=== PATIENT | female | born 1970 | race Caucasian/White ===

== ENCOUNTER 2024-05-27 06:59 | Day surgery (SDC) | payer SELFPAY, OTHER ==
--- NOTE | 2024-05-25 15:57 | PCM.HP.BLA ---
History and Physical Date of Admission: 05/27/24 Pre-Op History and Physical HPI: The patient is a 54 year old female presenting for pre-operative visit. She is scheduled for Hysteroscopy D&C, possible polypectomy for PMB, thickened EM on 05/27/24. Procedure discussed along with risks, benefits and complications. Other alternatives discussed for management. Consent form signed? Yes. PAST MEDICAL HISTORY No past medical history on file. PAST SURGICAL HISTORY PAST SURGICAL HISTORY Procedure Laterality Date ? APPENDECTOMY ? PAST SURGICAL HISTORY OF tumor removal CURRENT MEDICATIONS Current Outpatient Medications Medication Sig Dispense Refill ? norethindrone (AYGESTIN) 5 mg tablet Take 1 tablet by mouth once daily. 30 tablet 2 No current facility-administered medications for this visit. ALLERGIES: Penicillins PERSONAL HISTORY: SOCIAL HISTORY Social History Tobacco Use ? Smoking status: Never ? Smokeless tobacco: Never Vaping Use ? Vaping status: Never Used Substance Use Topics ? Alcohol use: Never ? Drug use: Never FAMILY HISTORY: FAMILY HISTORY No family history on file. REVIEW OF SYMPTOMS: negative except as noted above PHYSICAL EXAMINATION: VITALS: There were no vitals taken for this visit. GENERAL: The patient is well nourished, well hydrated in no acute distress. , The patient is oriented to time, place, and person. NECK: full range of motion LUNGS: Clear to auscultation bilaterally. no wheezes, rhonchi or rales HEART: Regular rate and rhythm, Normal heart sounds, and No murmurs or gallops IMPRESSION: PMB, thickened Endometrium PLAN: Hysteroscopy, D&C, possible polypectomy with symphion Pt has been counseled on risks/benefits and alternatives of surgery including but not limited to anesthesia, bleeding, infection, uterine perforation with subsequent injury to pelvic structures including bowel, bladder, ureters and vessels. Pt wishes to proceed with surgery at this time. Pre and post op instructions reviewed I have reviewed and updated past medical and surgical history, medications and allergies Jeanne Lala MD Office Visit on 05/02/2024 Note shared with patient
[2024-05-27] VITALS (8 sets, daily range): BP systolic 115–129; BP diastolic 76–85; PULSE 65–74; RESP 16–17; TEMP 36.2–36.6; O2SAT 93–100; BMI 29.2
--- NOTE | 2024-05-27 | EMB_PTH ---
PATIENT: PILY CLAROS [place] [facility] [id number] AGE/SX: 54/F ROOM: RE05/27/[address]: Dr. Jeanne Acosta, MDDOB: 1970 BED: DIS: 05/27/2024 SPEC #: [id number] RECD: 05/27/24 12:48 STATUS: BELKIS NIKOLASJean-Claude #: [id number] AMANDA: 05/27/24 00:[address]: Jeanne Acosta DEPT: SURGICAL PATHOLOGY RECD BY: Wicho Carr ENTERED: 05/27/24 12:49 SP TYPE: ENDOM BX/C OTHR DR: NEVIN Savage Tissues: Endometrium, NOS Procedures: Surgery Specimen Level IV HEADER OPERATION: Hysteroscopy, D&C PRE-OP DIAGNOSIS: Postmenopausal bleeding, thickened endometrium TISSUE SUBMITTED: Endometrial curettings MICROSCOPIC DIAGNOSIS Endometrial curettings: Proliferative endometrium. Numerous fragments of myometrium. SJ.mr 05/30/2024 MICROSCOPIC DESCRIPTION Slides are reviewed. GROSS DESCRIPTION Received in fixative is one container labeled with the patient's name and designated Endometrial curettings. The specimen consists of multiple irregular fragments of cortes soft tissue that in aggregate measure 3.0 x 2.5 x 0.3 cm. The specimen is totally submitted in one cassette. . 05/27/2024 TC:4 CPT:69490
--- NOTE | 2024-05-27 07:20 | DCINST_ITS ---
Discharge Instructions Diet Discharge Diet: No restrictions Activity May resume sexual activity in: 1 week Dressing / Incision Call your doctor if you observe: Fever of 101 or Higher, Inability to urinate, Using more than 1 pad per hour and Uncontrolled pain Follow Up Care Please Follow Up With: Jeanne Acosta MD When: 1-2 weeks post OP if you need an appointment please call [phone] Test Results: Test results from this visit will be discussed in further detail at your follow- up appointment, if applicable. Discharge Plan Admission Attending Provider: Jeanne Acosta Primary Care Provider: No Chan Instructions Print Language: [place]ese Discharge Orders/Prescriptions Referrals / Follow Up: No Chan PA [Primary Care Provider] - Disposition Disposition (needs filled in before D/C Order can be placed): Home, Self Care
[2024-05-27 07:29] LABS: Hematocrit 45.4 % (37-47); Hemoglobin 14.7 g/dL (12.0-15.0); Mean Corp Hgb Conc 32.4 g/dL (32-36); Mean Corpuscular Hgb 27.7 pg (27.0-32.0); Mean Corpuscular Volume 85.7 fL (81-99); Mean Platelet Vol. 10.2 fl (6.2-12.0); Platelet Count 316 K/mm3 (150-450); RBC Distribution Width CV 14.1 % (11.6-14.6); RBC Distribution Width SD 43.8 fl (35.1-43.9); White Blood Count 6.5 K/mm3 (4.4-11.0)
--- NOTE | 2024-05-27 07:37 | PCM.PRE.AN2 ---
ASA Classification* ASA Classification ASA Classification: 2 (SEE WRITTEN PRE ANESTHESIA RECORD FOR FULL ASSESSMENT) Assessment & Plan Anesthesia* Anesthesia Assessment Anesthesia Assessment: Discussed sedation and/or anesthesia options, risks, benefits, and alternatives with patient/parents/legal guardian/POA. Questions invited. The patient/parents/legal guardian/POA seems to understand and agrees to proceed with anesthesia plan. Reviewed the physical assessment, medical history, allergy history and patient home medications list prior to surgery/procedure/anesthetic and documented any changes. Performed airway and anesthesia risk assessments. Anesthesia Type Anesthesia Type: MAC (SEE WRITTEN PRE ANESTHESIA RECORD FOR FULL ASSESSMENT) Anesthesia Focused Assessment* Temperature: 97.4 F Pulse Rate: 72 Blood Pressure: 129/85 Respiratory Rate: 17 Pulse Ox: 100 Airway Assessment Mouth opens: >3 cm Mallampati Score: II Focused Labs Anesthesia Preop lab: CBC WBC 6.5 K/mm3 (4.4-11.0) 05/27/24 07:23 RBC 5.30 M/mm3 (4.2-5.4) 05/27/24 07:23 Hgb 14.7 g/dL (12.0-15.0) 05/27/24 07:23 Hct 45.4 % (37-47) 05/27/24 07:23 Plt Count 316 K/mm3 (150-450) 05/27/24 07:23 CHEMISTRY Potassium Pending 05/27/24 07:23 Sodium Pending 05/27/24 07:23 BUN Pending 05/27/24 07:23 Creatinine Pending 05/27/24 07:23 Glucose Pending 05/27/24 07:23 COAG Pre-Assessment Diagnosis/Proposed Procedure Planned Operative Procedure(s): HYSTEROSCOPY D&C POSS POLYPECTOMY Anesthesia History Anesthesia History - telephone interviewer: Anesthesia History - telephone interviewer Hx Hospitalization No 05/20/24 08:54 Any Problems With Anesthesia No 05/20/24 08:54 Cholinesterase deficiency No 05/20/24 08:54 You/Your Family Experience No 05/20/24 08:54 fever (hyperthermia) with Relationship Recent Exposure to Contagious No 05/27/24 07:26 Disease Does patient have nerve No 05/20/24 08:54 stimulator Patient instructed to have device shut off --Does patient have Pacemaker No 05/27/24 07:26 or ICD? When Was Last Pacemaker Check QUESTION #4 FULL TEXT: You/Your Family Experience fever (hyperthermia) with Anesthesia Last Oral Intake Last Oral intake: Last Oral Intake NPO since 00:00 05/27/24 07:26 Meds taken in AM with sips of No 05/27/24 07:26 water? Meds patient instructed to take am of surgery PONV PONV - telephone interviewer: PONV - telephone interviewer Female Yes 05/20/24 08:54 HX of Motion Sickness No 05/20/24 08:54 HX of N/V After Surgery No 05/20/24 08:54 Non-Smoker Yes 05/20/24 08:54 Duration of Surgery greater No 05/20/24 08:54 than 60 minutes Number of Risk Factors 2 05/20/24 08:54 PONV Score Moderate Risk 05/20/24 08:54 Height & Weight Height & Weight: Anesthesia: Height & Weight Height 5 ft 6 in 05/27/24 07:26 Weight: 82 kg 05/27/24 07:26 Body Mass Index (BMI) 29.2 05/27/24 07:26 Respiratory Assessment Respiratory Assessment - telephone interviewer: Respiratory Tract Infection Hx - telephone interviewer Hx Respiratory Tract Infection Yes: HEAD CONGESTION 05/20/24 08:54 STOP Sleep Apnea STOP Sleep Apnea - telephone interviewer: STOP Sleep Apnea - telephone interviewer Hx Hypertension No 05/20/24 08:54 Hx Sleep Apnea No 05/20/24 08:54 CPAP BIPAP Do you snore loudly (louder No 05/20/24 08:54 than talking or can be heard Do you often feel tired/ No 05/20/24 08:54 fatigued/ sleepy during daytime? Has anyone observed you stop No 05/20/24 08:54 breathing during sleep? STOP Results Negative 05/20/24 08:54 QUESTION #5 FULL TEXT : Do you snore loudly (louder than talking or can be heard through closed doors)? Tobacco Use History Tobacco Use History - telephone interviewer: Tobacco Use History - telephone interviewer Tobacco Use Smoking Status Never smoker 05/20/24 08:54 Hx Tobacco Use No 05/20/24 08:54 Years Smoking Packs Smoked per Day Smoking Cessation Date was within the last 15 years Hx Smoking Cessation Date Hx Smoking Cessation Counseling Hematologic Medial History Hematologic Hx - telephone interviewer: Hematologic Medical Hx - lot associate Hx of Blood Transfusion No 05/20/24 08:54 Hx of Transfusion in last 3 No 05/20/24 08:54 Months Date of Last Transfusion (if within last 3 months) Ever experience any problems No 05/20/24 08:54 with transfusion(s)? Specify any problems Hx of Preganancy in last 3 No 05/20/24 08:54 Months Nurse Filling Out Transfusion DSCHRIBER 05/20/24 08:54 & Questions: Date: 05/20/24 05/20/24 08:54 Time: 08:55 05/20/24 08:54 Patient unable to answer at this time (ie. confused, unrespo /Reproduction History /Reproductive History - telephone interviewer: /Reproductive Hx- telephone interviewer Hx Now No 05/20/24 08:54 Gestational Age (in weeks): EDC: Hx Hx Para Hx Section SAB No 05/20/24 08:54 PFSH Medical History Post-menopausal Wears hearing aid Wears glasses Wears dentures Non-smoker Allergy/AdvReac Type Severity Reaction Status Date / Time Penicillins Allergy Intermediate Hives Verified 05/27/24 07:25 Surgical History Hx of surgical procedure Hx of abdominal surgery Social History Smoking Status: Never smoker Review of Systems (Anesthesia) ROS Narrative System reviewed and no additional complaints, except as documented.
[2024-05-27 07:40] LABS: Anion Gap 6 (5-15); BUN 13 mg/dL (7-18); BUN/Creat Ratio 15.5 RATIO (10-20); Chloride 107 mmol/L (98-107); Creatinine, Serum 0.84 mg/dL (0.55-1.02); EST Glomerular Filtration Rate 75 mL/min (>60); Est Glom Filt Rate - Afr Amer 91 mL/min (>60); Estimated Creatinine Clearance 83.61 ml/min; Glucose 124 mg/dL (74-106); Sodium Level 140 mmol/L (136-145)
--- NOTE | 2024-05-27 08:37 | PCM.OPRPT ---
Operative Report (Standard) Operative Information Surgery/Procedure Performed: hysteroscopy, D&C with symphion Surgeon: Jeanne Acosta Date of Procedure: 05/27/24 Procedure Start Time: 08:28 Procedure Stop Time: 08:35 Pre-Operative Diagnosis: PMB, thickened endometrium Post-Operative Diagnosis: same Select all DRAINS/GRAFTS/IMPLANTS that apply: None Type of Anesthesia: MAC Estimated Blood Loss: <5cc Specimen collected: Yes Description of specimen(s) removed: endometrial curettings Description of surgery: Informed consent was obtained the patient was taken the operating room she was placed in supine position. She was given anesthesia. She was then placed in the [facility] where she was prepped and draped in the normal sterile fashion. bladder drained prior to start of procedure. At this time the weighted speculum was placed in the posterior fornix of vagina. Single-tooth tenaculum was used to gently grasp the anterior lip the cervix. At this time the uterine cavity was sounded to approximately 8 cm. Gentle dilatation was performed once adequate dilatation of the cervix was achieved the hysteroscope using normal saline as a distention medium was placed. Tubal ostia visualized. tissue appered slighlty thick on anterior aspect, possible polyp but not well defined. Symphion resecting device used to obtain endometrial curettings.. Tissue will be sent to pathology for evaluation. Tenaculum removed. Good hemostasis. Instrument, lap count correct x 2. fluid deficiet 200cc Vaginal Sweep was negative. Jay Jay Mares MS3 scrubbed for case Surgical Findings: thickened tissue anterior aspect. Inspector Bullet Slugs screw supervisor: No Complications Complications: No Admit VTE Documentation VTE Present on Admission: Yes VTE Mechan Device Prophylaxis: SCD's VTE Pharm Prophylaxis ordered?: No Reason prophylaxis not ordered: Treatment Not Indicated
--- NOTE | 2024-05-27 08:56 | PCM.POST.ANE ---
Anesthesia: Postop Eval I Current Vital Signs Temperature: 97.9 F Pulse Rate: 74 Blood Pressure: 115/82 Respiratory Rate: 16 Pulse Ox: 95 Oxygen Delivery Method: Room Air Assessment Airway patent: Yes Spontaneous unlabored respirations: Yes Mental status: Awake and Calm nausea: No Vomiting: No Anesthesia Complication: No Fluid Hydration Crystalloid volume administer (ml): 0 Total IV fluid infused: 0 Progress Note Anesthesia document: Postop Eval 1 completed: Yes
--- NOTE | 2024-05-27 09:03 | POSTOPAN2_ITS ---
Anesthesia Postop Eval I Sum Postop Eval Completion status Anesthesia document: Postop Eval 1 completed: Yes Anesthesia Postop Eval I Summary Anesthesia Postop Eval I Summary: Anesthesia Postop Eval I: Assessment Summary Airway patent Yes 05/27/24 08:56 GLYCERIN SUPERVISOR.[email or web address] Spontaneous unlabored Yes 05/27/24 08:56 GLYCERIN SUPERVISOR.[email or web address] respirations Mental status Awake,Calm 05/27/24 08:56 GLYCERIN SUPERVISOR.[email or web address] nausea No 05/27/24 08:56 GLYCERIN SUPERVISOR.[email or web address] Vomiting No 05/27/24 08:56 GLYCERIN SUPERVISOR.[email or web address] Anesthesia Postop Eval I: Fluid Summary Crystalloid volume administer 0 05/27/24 08:56 GLYCERIN SUPERVISOR.[email or web address] (ml) Colloids volume administered ( ml) Blood Product volume administered (ml) Total IV fluid infused 0 05/27/24 08:56 SCOTT Anesthesia Postop Eval I: Summary Notes Anesthesia Complication No 05/27/24 08:56 SCOTT Anesthesia Complication Comment: Post-operative progress note Anesthesia: Postop Eval II Evaluation Mental status: Awake Pain Level: 0 nausea: No Vomiting: No
--- NOTE | 2024-05-27 09:03 | PCM.POSTANE2 ---
Anesthesia Postop Eval I Sum Postop Eval Completion status Anesthesia document: Postop Eval 1 completed: Yes Anesthesia Postop Eval I Summary Anesthesia Postop Eval I Summary: Anesthesia Postop Eval I: Assessment Summary Airway patent Yes 05/27/24 08:56 RACK PUSHER.[email or web address] Spontaneous unlabored Yes 05/27/24 08:56 RACK PUSHER.[email or web address] respirations Mental status Awake,Calm 05/27/24 08:56 RACK PUSHER.[email or web address] nausea No 05/27/24 08:56 RACK PUSHER.[email or web address] Vomiting No 05/27/24 08:56 RACK PUSHER.[email or web address] Anesthesia Postop Eval I: Fluid Summary Crystalloid volume administer 0 05/27/24 08:56 RACK PUSHER.EMMANUEL (ml) Colloids volume administered ( ml) Blood Product volume administered (ml) Total IV fluid infused 0 05/27/24 08:56 SCOTT Anesthesia Postop Eval I: Summary Notes Anesthesia Complication No 05/27/24 08:56 SCOTT Anesthesia Complication Comment: Post-operative progress note Anesthesia: Postop Eval II Evaluation Mental status: Awake Pain Level: 0 nausea: No Vomiting: No
== END 2024-05-27 09:55 | disposition home or self-care (01) ==
LOC: SDC 07:03 → AC 07:05
PROVIDERS: PCP Physician Assistant; Referring Provider Obstetrics & Gynecology; Visit Provider Obstetrics & Gynecology
PROC: 0UB98ZZ Excision of Uterus, Via Natural or Artificial Opening Endoscopic (ICD-10-PCS; CPT 58558; principal; 2024-05-27 08:15)
DX: N95.0 Postmenopausal bleeding (principal); N80.01 Superficial endometriosis of the uterus
CPT/HCPCS: 58558; 80048; 85027; 88305; A4216; J2405